=== PATIENT | male | born 1965 ===

== ENCOUNTER 2020-03-30 16:07 | Inpatient (IN) | payer MEDICARE, MEDICAID ==
[2020-03-30 21:58] VITALS: BP 158/104
[2020-03-30] MEDS ORDERED: Magnesium Hydroxide (MOM) 30 mL UDC PO PRN (22:00)
[2020-03-30] MEDS ORDERED: Maalox 30 mL Cup PO PRN (22:00)
[2020-03-31] MEDS ORDERED: OXCARBAZEPINE 600 MG PO SCH (09:00)
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
[2020-03-31] MEDS: Multivitamin Tab PO SCH (10:30)
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
[2020-03-31] MEDS: Diclofenac 75 mg Tab PO SCH ×2 (14:18→20:32)
[2020-03-31 14:19] LABS: CHOLESTEROL 124 mg/dL (<200); LDL CHOLESTEROL 59 mg/dL (0-129); TRIGLYCERIDES 110 mg/dL (30-150)
[2020-03-31] MEDS: Venelex 60gm Tube TP SCH (15:47)
[2020-04-01] MEDS: Venelex 60gm Tube TP SCH (08:42)
[2020-04-01] MEDS: Diclofenac 75 mg Tab PO SCH ×3 (08:43→20:25)
[2020-04-01] MEDS: Multivitamin Tab PO SCH (08:43)
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
[2020-04-01 14:11] LABS: A1C 5.4
--- NOTE | 2020-04-01 21:41 | Progress Notes ---
DATE: 04/01/2020 Case was discussed with staff of the patient, reviewed records. The patient continues to be anxious and easily agitated. The patient continues to be depressed and overwhelmed. He wants to kill himself. He feels his life is over. He has been very depressed and has been depressed for a long period of time. The patient report hearing voices and the patient continues to have poor insight, unpredictable, impulsive, and depressed. No side effects with the medication, no sedation, no nausea, or no extrapyramidal symptoms. The patient at the beginning today did not recognize me. Later, he was able to talk and he tolerated the Lexapro with no side effects. He is also on Trileptal 600 mg 3 times a day with no side effects, no sedation, or no nausea. We will continue outpatient group therapy, milieu therapy, and adjust medication as needed. JOB# [id number]
[2020-04-02] MEDS: Diclofenac 75 mg Tab PO SCH ×3 (08:51→20:57)
[2020-04-02] MEDS: Venelex 60gm Tube TP SCH (08:51)
[2020-04-02] MEDS: Multivitamin Tab PO SCH (08:51)
[2020-04-02 10:26] LABS: WHITE BLOOD COUNT 6.9 K/uL (4.8-10.8)
[2020-04-02 10:27] LABS: % NEUTROPHILS 67.7 % (40-70); BASOPHILS % (AUTO) 0.5 % (0.0-2.0); EOSINOPHILS % (AUTO) 2.3 % (0-4); HEMATOCRIT 38.4 % (36-54); HEMOGLOBIN 12.5 g/dL (14.0-18.0); LYMPHOCYTES % (AUTO) 22.9 % (20.5-51.5); MEAN CORPUSCULAR HEMOGLOBIN 29 pg (27-31); MEAN CORPUSCULAR HGB CONC 33 % (32-36); MEAN CORPUSCULAR VOLUME 88 fL (79.0-98.0); MONOCYTES % (AUTO) 6.6 % (1.7-9.3); PLATELET COUNT 369 K/uL (130-430); RED BLOOD COUNT 4.35 MIL/uL (4.2-6.2); RED CELL DISTRIBUTION WIDTH 16.2 % (9.0-15.0)
[2020-04-02 10:28] LABS: EOSINOPHILS # (AUTO) 0.2 K/uL (0.0-0.4); LYMPHOCYTES # (AUTO) 1.6 K/uL (1.0-5.5); MONOCYTES # (AUTO) 0.5 K/uL (0.0-1.0); NEUTROPHILS # (AUTO) 4.7 K/uL (1.8-7.7)
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
--- NOTE | 2020-04-02 23:47 | Progress Notes ---
DATE: 04/02/2020 Case was discussed with staff of the patient, reviewed records. The patient reports he continues to be depressed, overwhelmed, has been depressed for a long time. The patient continues to report hearing voices of evil and demons fighting with each other. However, he reports that the suicidal ideation are not as prominent. The patient with a history of going to [place] [facility]. The patient is sleeping better, eating better. No side effects with the medication, no sedation, no nausea, no extrapyramidal symptoms. We will continue outpatient group therapy, milieu therapy, adjust medication as needed. The patient agreed to sign voluntary. JOB# [id number]
[2020-04-03] MEDS: Venelex 60gm Tube TP SCH (08:29)
[2020-04-03] MEDS: Diclofenac 75 mg Tab PO SCH ×3 (08:29→21:10)
[2020-04-03] MEDS: Multivitamin Tab PO SCH (08:30)
--- NOTE | 2020-04-04 07:56 | Progress Notes ---
DATE: SUBJECTIVE: The patient was seen, chart reviewed, and discussed with staff. The patient continues very depressed, endorsing feelings of hopelessness, helplessness as well as command hallucinations of demons telling him to end his own life. He has been compliant with medications, denying any side effects. PLAN: The patient continues to have auditory hallucinations as well as thoughts of wanting to hurt himself, so he will require inpatient care center and treatment. We will monitor on a daily basis for response to medication and titrate medications as needed. JOB# [id number]
[2020-04-04] MEDS: Venelex 60gm Tube TP SCH (08:54)
[2020-04-04] MEDS: Diclofenac 75 mg Tab PO SCH ×3 (08:55→20:39)
[2020-04-04] MEDS: Multivitamin Tab PO SCH (08:55)
--- NOTE | 2020-04-04 17:37 | Progress Notes ---
DATE: SUBJECTIVE: The patient was seen, chart reviewed, and discussed with staff. The patient continues to endorse command hallucinations telling him to end his own life, continues to be very depressed and distressed. He has; however, had good appetite and compliant with medications. PLAN: The patient continues to have command hallucinations telling him to harm himself, so that he will require inpatient care center and treatment. We will monitor the patient on a daily basis for response to medications and titrate medications as needed. [facility]# [id number]
[2020-04-05] MEDS: Venelex 60gm Tube TP SCH (08:25)
[2020-04-05] MEDS: Multivitamin Tab PO SCH (08:26)
[2020-04-05] MEDS: Diclofenac 75 mg Tab PO SCH ×3 (08:26→21:08)
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
[2020-04-05] MEDS ORDERED: Magnesium Hydroxide (MOM) 30 mL UDC PO PRN (21:52)
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
[2020-04-06] MEDS: Diclofenac 75 mg Tab PO SCH ×3 (08:19→21:22)
[2020-04-06] MEDS: Venelex 60gm Tube TP SCH (08:19)
[2020-04-06] MEDS: Multivitamin Tab PO SCH (08:19)
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
--- NOTE | 2020-04-06 19:23 | Progress Notes ---
DATE: 04/06/2020 Case was discussed with staff of the patient, reviewed records. The patient is working with the staff on discharge plan. He is sleeping better, eating better. He denies any auditory or visual hallucination or paranoia. He has been calm and cooperative. No side effects with the medication, no sedation, no nausea. Working on discharge plan. We will continue outpatient group therapy, milieu therapy, and adjust medications as needed. JOB# [id number]
[2020-04-07] MEDS: Diclofenac 75 mg Tab PO SCH (08:37)
[2020-04-07] MEDS: Multivitamin Tab PO SCH (08:37)
[2020-04-07] MEDS: Venelex 60gm Tube TP SCH (08:37)
--- NOTE | 2020-04-07 10:42 | Progress Notes ---
DATE: 04/07/2020 Case was discussed with staff of the patient, reviewed records. The patient reports feeling better. Some people are going to come and interview him today, he is minimizing any current intent to harm himself or anyone. He denies any auditory or visual hallucination, happy with the medication, no side effects to the medication, no sedation, no nausea, no extrapyramidal symptoms. The patient is paraplegic on a wheelchair, pleasant, cooperative. Vital signs stable. We will continue outpatient group therapy, milieu therapy, and adjust the medication as needed. JOB# [id number]
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
[2020-04-08] MEDS: Multivitamin Tab PO SCH (08:39)
[2020-04-08] MEDS: Venelex 60gm Tube TP SCH (10:00)
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
== END 2020-04-08 17:30 | DRG 885 ==
LOC: GERO 18:51
PROVIDERS: ADMIT Psychiatry & Neurology Psychiatry; ATTEND Psychiatry & Neurology Psychiatry
DX: F33.2 Major depressive disorder, recurrent severe without psychotic features (principal); G82.20 Paraplegia, unspecified; F10.20 Alcohol dependence, uncomplicated; F19.10 Other psychoactive substance abuse, uncomplicated; Y90.9 Presence of alcohol in blood, level not specified; I10 Essential (primary) hypertension; L89.91 Pressure ulcer of unspecified site, stage 1; M19.042 Primary osteoarthritis, left hand; M19.041 Primary osteoarthritis, right hand
CPT/HCPCS: 36415-UA; 80061-TC; 82948-90; 83036-90; 84443-TC; 85025-TC; 90899; G0410; U0003-CS; Z7610